=== PATIENT | male | born 1940 | race Caucasian/White ===

== ENCOUNTER → 2016-12-18 | Outpatient (CLI) | payer OTHER ==
--- NOTE | 2016-12-18 17:15 | PCVCIMAG ---
APPROVED REPORT Study performed: 12/18/2016 12:52:52 EXAM: Comprehensive 2D, Doppler, and color-flow Echocardiogram Patient Location: Echo lab Status: routine BSA: 1.76 HR: 67 bpmBP: 130/86 mmHg Rhythm: NSR Other Information Study Quality: Adequate Indications COPD, HTN, PULM EMBOLI, HYPERLIPDEMIA, AORTIC STENOSIS 2D Dimensions IVSd: 8.43 (7-11mm)LVOT Diam: 24.07 (18-24mm) LVDd: 47.37 mm PWd: 10.23 (7-11mm)Ascending Ao: 38.09 (22-36mm) LVDs: 36.53 (25-40mm) Left Atrium: 34.64 (27-40mm) Aortic Root: 34.65 mm LV Single Plane 4CH: 48.01 % [place]'s LVEF: 45.94 % Volumes Left Atrial Volume (Systole) Single Plane 4CH: 31.25 mLSingle Plane 2CH: 33.60 mL LA ESV Index: 19.00 mL/m2 Aortic Valve AoV Peak Irving.: 2.37 m/s AO Peak Gr.: 0.01 mmHgLVOT Max P.59 mmHg AO Mean Gr.: 12.22 mmHgLVOT Mean P.83 mmHg AO V2 Mean: 1.68 m/sLVOT Max V: 0.95 m/s AO V2 VTI: 61.89 cmLVOT Mean V: 0.61 m/s ARLYN (VTI): 1.59 [id number] V1 VTI: 21.68 cm ARLYN Vmax: 1.82 cm2 AI Vmax: 4.04 m/sSV (LVOT): 98.61 mL AI [place]: 1.85 m/s2 AI PHT: 633.30 ms Mitral Valve E/A Ratio: 0.7 MV Decel. Time: 306.51 ms MV E Max [place].: 0.74 m/s MV A Irving.: 1.13 m/s IVRT: 103.81 ms TDI E/Lateral E': 12.33E/Medial E': 10.57 Medial E' Irving.: 0.07 m/s Lateral E' Irving.: 0.06 m/s Pulmonary Valve PV Peak Gr.: 1.99 mmHg Pulmonary Vein P Vein S: 0.51 m/sP Vein A: 0.40 m/s P Vein D: 0.34 m/sP Vein A Dur.: 83.0 msec P Vein S/D Ratio: 1.50 Left Ventricle The left ventricle is normal size. There is normal LV segmental wall motion. There is normal left ventricular wall thickness. Left ventricular systolic function is normal. The left ventricular ejection fraction is within the normal range. LVEF is 50-55%. The left ventricular diastolic function is normal. Right Ventricle The right ventricle is normal size. The right ventricular systolic function is normal. Atria The left atrium size is normal. The right atrium size is normal. Aortic Valve Aortic valve is calcified. Aortic valve is probably trileaflet. Trace to mild aortic regurgitation. There is mild valvular aortic stenosis. Calculated aortic valve area is 1.8 cm2 with maximum pressure gradient of 23 mmHg and mean pressure gradient of 13 mmHg. Mitral Valve The mitral valve is normal in structure. Trace mitral regurgitation. No evidence of mitral valve stenosis. Tricuspid Valve The tricuspid valve is normal in structure. There is no tricuspid valve regurgitation noted. Pulmonic Valve The pulmonary valve is normal in structure. There is no pulmonic valvular regurgitation. Great Vessels The aortic root is normal in size. IVC is normal in size and collapses with >50% inspiration Pericardium There is no pericardial effusion. <Conclusion> The left ventricle is normal size. LVEF is 50-55%. The left ventricular diastolic function is normal. The right ventricle is normal size. The right ventricular systolic function is normal. The left atrium size is normal. The right atrium size is normal. Aortic valve is calcified. Aortic valve is probably trileaflet. Trace to mild aortic regurgitation. There is mild valvular aortic stenosis. Calculated aortic valve area is 1.8 cm2 with maximum pressure gradient of 23 mmHg and mean pressure gradient of 13 mmHg. Trace mitral regurgitation. There is no tricuspid valve regurgitation noted. IVC is normal in size and collapses with >50% inspiration There is no pericardial effusion.
== END | disposition home or self-care (01) ==
LOC: PCVCIMAG 12:37
PROVIDERS: ATTEND Internal Medicine Cardiovascular Disease
DX: I35.0 Nonrheumatic aortic (valve) stenosis (principal); I10 Essential (primary) hypertension; E78.4 Other hyperlipidemia; E78.00 Pure hypercholesterolemia, unspecified; I77.9 Disorder of arteries and arterioles, unspecified; J44.9 Chronic obstructive pulmonary disease, unspecified; I26.99 Other pulmonary embolism without acute cor pulmonale
CPT/HCPCS: 80061; 93005; 93325; 93351; G0463

== ENCOUNTER → 2017-06-23 | Outpatient (CLI) | payer OTHER | END | disposition home or self-care (01) | LOC: PCVCCLINIC 15:40 | DX: I10 Essential (primary) hypertension (principal); I77.9 Disorder of arteries and arterioles, unspecified; E78.00 Pure hypercholesterolemia, unspecified; I35.0 Nonrheumatic aortic (valve) stenosis; Z86.711 Personal history of pulmonary embolism; Z79.82 Long term (current) use of aspirin; Z79.899 Other long term (current) drug therapy | CPT/HCPCS: 80061; 93005; G0463 ==

== ENCOUNTER → 2017-12-14 | Outpatient (CLI) | payer OTHER | END | disposition home or self-care (01) | LOC: PCVCCLINIC 14:40 | PROVIDERS: ATTEND Internal Medicine Cardiovascular Disease | DX: I10 Essential (primary) hypertension (principal); E78.00 Pure hypercholesterolemia, unspecified; I35.0 Nonrheumatic aortic (valve) stenosis; J44.0 Chronic obstructive pulmonary disease with (acute) lower respiratory infection; I77.9 Disorder of arteries and arterioles, unspecified | CPT/HCPCS: 80061; 93005; G0463 ==

== ENCOUNTER → 2018-06-24 | Outpatient (CLI) | payer OTHER ==
--- NOTE | 2018-06-24 14:44 | PCVCIMAG ---
APPROVED REPORT Study performed: 06/24/2018 13:24:29 EXAM: Comprehensive 2D, Doppler, and color-flow Echocardiogram Patient Location: Echo lab Status: routine BSA: 1.80 HR: 90 bpmBP: 140/80 mmHg Rhythm: Atrial Fibrillation Other Information Study Quality: Technically Difficult Indications Hypertension/HDD Aortic Stenosis, COPD, Hyperlipidemia 2D Dimensions IVSd: 14.51 (7-11mm)LVOT Diam: 23.95 (18-24mm) LVDd: 50.62 mm PWd: 10.45 (7-11mm)Ascending Ao: 34.80 (22-36mm) LVDs: 48.83 (25-40mm) Left Atrium: 41.44 (27-40mm) Aortic Root: 32.30 mm LV Single Plane 4CH: 34.87 % LV Single Plane 2CH: 29.46 % Biplane EF: 31.8 % Volumes Left Atrial Volume (Systole) Single Plane 4CH: 42.94 mLSingle Plane 2CH: 75.78 mL LA ESV Index: 33.00 mL/m2 Aortic Valve AoV Peak Irving.: 2.16 m/s AO Peak Gr.: 18.65 mmHgLVOT Max P.63 mmHg AO Mean Gr.: 12.66 mmHgLVOT Mean P.87 mmHg AO V2 Mean: 1.71 m/sLVOT Max V: 0.86 m/s AO V2 VTI: 41.80 cmLVOT Mean V: 0.67 m/s ARLYN (VTI): 1.71 [id number] V1 VTI: 15.84 cm ARLYN Vmax: 1.80 cm2 AI Vmax: 4.39 m/sSV (LVOT): 71.31 mL AI [place]: 6.06 m/s2 AI PHT: 210.37 ms Mitral Valve E/A Ratio: 1.0 MV E Max [place].: 1.25 m/s MV A Irving.: 1.25 m/s Left Ventricle The left ventricle is normal size. There is global hypokinesis of the left ventricle. There is normal left ventricular wall thickness. Left ventricular systolic function is moderately decreased. LVEF is 30-35%. This study is not technically sufficient to allow evaluation of the LV diastolic function due to atrial fibrillation. Right Ventricle The right ventricle is normal size. The right ventricular systolic function is normal. Atria The left atrium size is normal. The right atrium size is normal. Aortic Valve Aortic valve leaflets are moderately thickened. Mild aortic regurgitation. Aortic valve peak gradient is 18mmHg. Mean gradient is 13mmHg. Aortic Valve area is 1.7cm2. Mitral Valve The mitral valve is normal in structure. Mild mitral regurgitation. No evidence of mitral valve stenosis. Tricuspid Valve The tricuspid valve is normal in structure. There is no tricuspid valve regurgitation noted. Pulmonic Valve The pulmonary valve is normal in structure. There is no pulmonic valvular regurgitation. Great Vessels The aortic root is normal in size. IVC is normal in size and collapses >50% with inspiration. Pericardium There is no pericardial effusion. <Conclusion> The left ventricle is normal size. Left ventricular systolic function is moderately decreased. Left ventricular systolic function is moderately decreased. LVEF is 30-35%. This study is not technically sufficient to allow evaluation of the LV diastolic function due to atrial fibrillation. The right ventricle is normal size. The left atrium size is normal. The right atrium size is normal. Aortic valve leaflets are moderately thickened. Mild aortic regurgitation. Aortic valve peak gradient is 18mmHg. Mean gradient is 13mmHg. Aortic Valve area is 1.7cm2. There is no tricuspid valve regurgitation noted. The aortic root is normal in size. There is no pericardial effusion.
== END | disposition home or self-care (01) ==
LOC: PCVCIMAG 12:49
PROVIDERS: ATTEND Internal Medicine Cardiovascular Disease
DX: I08.0 Rheumatic disorders of both mitral and aortic valves (principal); I10 Essential (primary) hypertension; J44.9 Chronic obstructive pulmonary disease, unspecified; E78.5 Hyperlipidemia, unspecified; I48.91 Unspecified atrial fibrillation
CPT/HCPCS: 93306

== ENCOUNTER → 2018-11-09 | Outpatient (CLI) | payer OTHER ==
--- NOTE | 2018-11-09 16:10 | PCVCIMAG ---
APPROVED REPORT Study performed: 11/09/2018 13:11:22 EXAM: Comprehensive 2D, Doppler, and color-flow Echocardiogram Patient Location: Echo lab Status: routine BSA: 1.76 HR: 70 bpmBP: 128/60 mmHg Rhythm: NSR Other Information Study Quality: Adequate Indications CAD Cardiomyopathy aortic stenosis 2D Dimensions IVSd: 13.37 (7-11mm)LVOT Diam: 23.84 (18-24mm) LVDd: 43.44 mm PWd: 11.45 (7-11mm)Ascending Ao: 34.31 (22-36mm) LVDs: 37.13 (25-40mm) Left Atrium: 36.34 (27-40mm) Aortic Root: 33.27 mm LV Single Plane 4CH: 48.22 % LV Single Plane 2CH: 46.81 % Biplane EF: 48.0 % Volumes Left Atrial Volume (Systole) Single Plane 4CH: 58.67 mLSingle Plane 2CH: 73.77 mL LA ESV Index: 39.00 mL/m2 Aortic Valve AoV Peak [place].: 2.73 m/s AO Peak Gr.: 29.77 mmHgLVOT Max P.65 mmHg AO Mean Gr.: 16.94 mmHgLVOT Mean P.31 mmHg AO V2 Mean: 1.98 m/sLVOT Max V: 0.81 m/s AO V2 VTI: 61.64 cmLVOT Mean V: 0.54 m/s ARLYN (VTI): 1.42 [id number] V1 VTI: 19.66 cm ARLYN Vmax: 1.33 cm2 AI Vmax: 3.83 m/sSV (LVOT): 87.67 mL AI [place]: 1.99 m/s2 AI PHT: 558.70 ms Mitral Valve E/A Ratio: 0.7 MV Decel. Time: 229.75 ms MV E Max [place].: 0.86 m/s MV A [place].: 1.20 m/s IVRT: 121.11 ms Pulmonary Valve PV Peak Irving.: 1.23 m/sPV Peak Gr.: 6.04 mmHg Pulmonary Vein P Vein S: 0.27 m/sP Vein A: 0.34 m/s P Vein D: 0.34 m/sP Vein A Dur.: 114.2 msec P Vein S/D Ratio: 0.79 Tricuspid Valve TR Peak Irving.: 2.45 m/s TR Peak Gr.: 24.08 mmHg Left Ventricle The left ventricle is normal size. Anterior and lateral hypokinesis. Mild concentric left ventricular hypertrophy. Left ventricular systolic function is mildly decreased. LVEF is 45-50%. Grade I - abnormal relaxation pattern. Right Ventricle The right ventricle is normal size. The right ventricular systolic function is normal. Atria The left atrium size is normal. The right atrium size is normal. Aortic Valve The aortic valve is moderately sclerotic. Mild aortic regurgitation. There is mild valvular aortic stenosis. Calculated aortic valve area is 1.3 cm2 with maximum pressure gradient of 30 mmHg and mean pressure gradient of 17 mmHg. Mitral Valve The mitral valve is normal in structure. Mild mitral annular calcification. Mild mitral regurgitation. No evidence of mitral valve stenosis. Tricuspid Valve The tricuspid valve is normal in structure. Mild tricuspid regurgitation with PAP of 31 mmHg. Pulmonic Valve The pulmonary valve is normal in structure. Moderate pulmonic regurgitation. Great Vessels The aortic root is normal in size. IVC is normal in size and collapses >50% with inspiration. Pericardium There is no pericardial effusion. There is no pleural effusion. <Conclusion> The left ventricle is normal size. Mild concentric left ventricular hypertrophy. Left ventricular systolic function is mildly decreased. LVEF is 45-50%. Anterior and lateral hypokinesis. Grade I - abnormal relaxation pattern. The right ventricle is normal size. The left atrium size is normal. The aortic valve is moderately sclerotic. Mild aortic regurgitation. There is mild valvular aortic stenosis. Calculated aortic valve area is 1.3 cm2 with maximum pressure gradient of 30 mmHg and mean pressure gradient of 17 mmHg. The mitral valve is normal in structure. Mild mitral annular calcification. Mild mitral regurgitation. Mild tricuspid regurgitation with PAP of 31 mmHg. The aortic root is normal in size. There is no pericardial effusion.
== END | disposition home or self-care (01) ==
LOC: PCVCIMAG 13:01
PROVIDERS: ATTEND Internal Medicine Cardiovascular Disease
DX: I08.3 Combined rheumatic disorders of mitral, aortic and tricuspid valves (principal); I25.10 Atherosclerotic heart disease of native coronary artery without angina pectoris; I42.9 Cardiomyopathy, unspecified
CPT/HCPCS: 93306